=== PATIENT | male | born 1975 | race Hispanic/Latino ===

== ENCOUNTER 2017-11-10 05:39 | Day surgery (SDC) | payer OTHER ==
[~2017-11-10] VITALS: Ht 185.4 cm; Wt 97.5 kg
[2017-11-10] MEDS ORDERED: ALL DAY ALLERGY10 M3 PO (05:47)
[2017-11-10] MEDS ORDERED: OMEPRAZOLE20 MG PO (05:47)
[2017-11-10] MEDS ORDERED: LITHIUM CARBON300 MG PO (05:48)
[2017-11-10] MEDS ORDERED: LEXAPRO5 MG PO (05:48)
[2017-11-10] MEDS ORDERED: TIROSINT75 MCG PO (05:49)
--- NOTE | 2017-11-10 07:59 | NUR ---
11/10/17 0759 Thalia Ragland 7556-PATIENT ARRIVED TO PACU ON 6L MASK O2 SAT 99% PATIENT REACTIVE EYES OPEN RAISING RIGHT HAND. LEFT LEG ELEVATED ON PILLOW DRESSING CDI. ICE APPLIED. RR EVEN. SR.
--- NOTE | 2017-11-10 08:32 | NUR ---
ROMI, ICED WATER AND WARM BLANKET GIVEN. E[facility]I OFFICERS @ BS.
[2017-11-10] MEDS ORDERED: ULTRAM50 MG PO (08:57)
--- NOTE | 2017-11-10 09:31 | NUR ---
MORE ICED WATER AND CRACKERS ARE GIVEN. JELLO EAT WITHOUT COMPLAINT. PT DENIES ADD'L NEEDS.
--- NOTE | 2017-11-10 09:45 | NUR ---
PT UP TO BR W/OFFICER STANDBY. OFFICERS REPORT PT AMBULATES WELL. PT VOIDS. DC INSTRUCTIONS GIVEN AND PT VERBALIZES UNDERSTANDING. PT DRESSES SELF IN PRESENCE OF OFFICERS. CALL REPORT GIVEN TO ROSE BROWN.
--- NOTE | 2017-11-15 07:05 | OR ---
[facility] [address] [place], [place] [address] Signed DATE OF OPERATION: 11/10/2017 SURGEON: Nimesh Cool MD PREOPERATIVE DIAGNOSIS: Torn medial meniscus, left knee. POSTOPERATIVE DIAGNOSIS: Torn medial meniscus, left knee. PROCEDURE: Left knee arthroscopy with partial medial meniscectomy. ANESTHESIA: General. SPECIMENS AND COMPLICATIONS: There were no specimens or complications. TOURNIQUET TIME: About 20 minutes. WHAT WAS DONE: The patient was taken to the operating room. After anesthesia was induced and airway secured, the patient was positioned, prepped and draped in a routine sterile fashion. The leg was exsanguinated with an Esmarch bandage. Pneumatic tourniquet was inflated to 300 mmHg pressure. An outflow cannula was placed superolaterally and the arthroscope was placed anterolaterally. Diagnostic arthroscopy revealed an unremarkable suprapatellar pouch. There was some minor chondral change on the patella in the central area. The medial recess was unremarkable. The medial compartment revealed a complex posterior horn medial meniscal tear as described. However, there were no overlying chondral changes on the femoral condyle or the tibial plateau. The intercondylar notch was unremarkable with an intact ACL and the lateral compartment and lateral recess were similarly unremarkable. The scope was then returned to the medial compartment and anteromedial portal was created using transillumination and localization with a spinal needle. We then introduced a smaller probe confirmed the meniscal tear. We then passed a series of basket forceps to complete the tear. A single shard was delivered out of the knee and the edges were then smoothed and contoured with the motorized shaver. The knee was copiously irrigated and drained. The portals were closed and a sterile dressing was applied. The patient was Electronically Signed By: NIMESH COOL MD 11/15/17 0705 PATIENT NAME: FREDIS COSTAT SCOTT OPERATIVE REPORT DATE OF : 71 REPORT #: [id number] PHYSICIAN: NIMESH COOL MD PCP: ORESTES CROFT REPORT IS CONFIDENTIAL AND NOT TO BE RELEASED WITHOUT AUTHORIZATION [address] [address] Signed awakened and taken to the recovery room where he arrived in stable condition. Counts were correct and antibiotic protocols were followed. Nimesh Cool MD WFB/MODL /[id number] Copies: ~ Electronically Signed By: NIMESH COOL MD 11/15/17 0705 PATIENT NAME: IGORJOSEPHMARK CHAVEZ OPERATIVE REPORT DATE OF : 71 REPORT #: [id number] PHYSICIAN: NIMESH COOL MD PCP: ORESTES CROFT REPORT IS CONFIDENTIAL AND NOT TO BE RELEASED WITHOUT AUTHORIZATION
== END 2017-11-10 09:45 | disposition home or self-care (01) ==
LOC: DS 05:39
PROVIDERS: Orthopaedic Surgery
PROC: 0SBD4ZZ Excision of Left Knee Joint, Percutaneous Endoscopic Approach (ICD-10-PCS; principal; 2017-11-10 06:45)
DX: S83.232A Complex tear of medial meniscus, current injury, left knee, initial encounter (principal); E07.9 Disorder of thyroid, unspecified; K21.9 Gastro-esophageal reflux disease without esophagitis; X58.XXXA Exposure to other specified factors, initial encounter; Z79.899 Other long term (current) drug therapy; Z87.891 Personal history of nicotine dependence
CPT/HCPCS: 01400; J0690; J1885; J2250; J2405; J2704; J2765; J3010; J7120